=== PATIENT | male | born 1980 | race Caucasian/White ===

== ENCOUNTER 2020-10-21 15:58 | Inpatient (IN) | payer OTHER ==
[~2020-10-21] VITALS: Ht 182.9 cm; Wt 105.5 kg
[2020-10-21] MEDS ORDERED: CARAFATE 1 GM TA1 GM PO (20:59)
[2020-10-22 04:00] LABS: HEMOGLOBIN 15.1 gm/dl (14.0-17.5); RED BLOOD COUNT 4.62 M/UL (4.20-5.50); WHITE BLOOD COUNT 8.1 K/UL (4.5-11.0)
[2020-10-22 04:19] LABS: BUN/CREATININE RATIO 21 (0-10)
[2020-10-22] MEDS ORDERED: PROTONIX 40 MG40 M1 PO (20:59)
[2020-10-23 03:20] LABS: HEMOGLOBIN 14.6 gm/dl (14.0-17.5); RED BLOOD COUNT 4.5 M/UL (4.20-5.50); WHITE BLOOD COUNT 6.6 K/UL (4.5-11.0)
[2020-10-23 03:43] LABS: BUN/CREATININE RATIO 13 (0-10)
[2020-10-23] MEDS ORDERED: ATORVASTATIN CA20 MG PO (14:33)
[2020-10-23] MEDS ORDERED: LISINOPRIL5 MG PO (14:33)
[2020-10-23] MEDS ORDERED: LOPRESSOR 25 MG25 MG PO (14:33)
[2020-10-23] MEDS ORDERED: BAYER CHEWABLE81 MG PO (14:33)
[2020-10-23] MEDS ORDERED: GLUCOPHAGE850 MG PO (14:35)
== END 2020-10-23 17:00 | disposition left against medical advice (07) | DRG 282 ==
LOC: PROG CARE 20:00
PROVIDERS: Internal Medicine; ADMIT Internal Medicine
DX: I21.4 Non-ST elevation (NSTEMI) myocardial infarction (principal); E11.9 Type 2 diabetes mellitus without complications; I10 Essential (primary) hypertension; E78.5 Hyperlipidemia, unspecified; I25.10 Atherosclerotic heart disease of native coronary artery without angina pectoris; Z95.5 Presence of coronary angioplasty implant and graft; Z91.19 Patient's noncompliance with other medical treatment and regimen; Z79.899 Other long term (current) drug therapy; Z79.82 Long term (current) use of aspirin; Z79.84 Long term (current) use of oral hypoglycemic drugs; F17.210 Nicotine dependence, cigarettes, uncomplicated; Z82.49 Family history of ischemic heart disease and other diseases of the circulatory system
CPT/HCPCS: 36415; 78452; 80048; 80053; 80061; 82550; 82553; 82962; 83036; 84484; 85025; 85730; 86140; 93005; 93017; A9502; J1644; J2270; J2785